=== PATIENT | male | born 1945 | race Caucasian/White ===

== ENCOUNTER 2023-10-06 13:44 | Outpatient (RCR) | payer OTHER, SELFPAY | END 2024-04-03 23:59 | disposition home or self-care (01) | LOC: CCIC 13:44 | PROVIDERS: PCP Physician Assistant; Visit Provider Physician Assistant | DX: N18.32 Chronic kidney disease, stage 3b (principal); Z85.520 Personal history of malignant carcinoid tumor of kidney | CPT/HCPCS: 99211 ==